=== PATIENT | female | born 1985 | race African-American/Black ===

== ENCOUNTER 2018-06-24 18:39 | Emergency (ER) | payer MEDICAID ==
[~2018-06-24] VITALS: Ht 175.3 cm; Wt 83.9 kg
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
[2018-06-24] MEDS ORDERED: HYDROcodone/Acetamin 5/325 tab ORAL ONE (19:00)
[2018-06-24 19:27] VITALS: BP 124/78
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
[2018-06-24] MEDS ORDERED: Ketorolac 30mg Inj IM ONE (19:45)
--- NOTE | 2018-06-24 20:00 | NUR ---
ED Nurse Note: UNABLE TO OBTAIN URINE, ERPA AWARE. PT SIGNED CT CONSENT FORM/ ARY
--- NOTE | 2018-06-24 20:36 | NUR ---
ED Nurse Note: HARD C COLLAR REMOVED BY RUMA
[2018-06-24 21:01] VITALS: BP 121/75
[2018-06-24] MEDS ORDERED: ROBAXIN-750750 MG PO (21:14)
[2018-06-24] MEDS ORDERED: LIDODERM700 M1 TOPIC (21:14)
[2018-06-24] MEDS ORDERED: IBUPROFEN600 MG ORAL (21:14)
[2018-06-24 21:22] VITALS: BP 121/75
--- NOTE | 2018-06-24 21:23 | NUR ---
ER DISCHARGE NOTE: Patient is cleared to be discharged per ERMD, pt is aox4, on room air, with stable vital signs. pt was given dc and prescription instructions, pt was able to verbalize understanding, pt id band remvoed. pt is able to ambulate with steady gait. pt took all belongings.
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
== END 2018-06-24 21:22 | disposition home or self-care (01) ==
LOC: EDBD 18:39 → EMR 19:02
DX: S16.1XXA Strain of muscle, fascia and tendon at neck level, initial encounter (principal); M62.838 Other muscle spasm; S00.03XA Contusion of scalp, initial encounter; S30.1XXA Contusion of abdominal wall, initial encounter; S20.219A Contusion of unspecified front wall of thorax, initial encounter; M25.512 Pain in left shoulder; R07.9 Chest pain, unspecified; J32.2 Chronic ethmoidal sinusitis; J32.0 Chronic maxillary sinusitis; V43.62XA Car passenger injured in collision with other type car in traffic accident, initial encounter; Y92.410 Unspecified street and highway as the place of occurrence of the external cause
CPT/HCPCS: 70450; 71250; 72040; 72125; 73000; 81025; 96372; 99284; J1885